=== PATIENT | female | born 1960 | race Caucasian/White ===

== ENCOUNTER 2017-05-20 18:08 | Emergency (ER) | payer MEDICAID ==
--- NOTE | 2017-05-20 18:24 | Emergency Department Record ---
History of Present Illness - General Chief complaint: Head Injury Stated complaint: BUMP ON HEAD FROM POSS FALL Time Seen by Provider: 05/20/17 18:15 Source: Patient Mode of Arrival: Ambulatory Limitations: No limitations - History of Present Illness Initial comments: 56 yo woke up this morning with a forehead contusion. She sleep walk on a very regular and frequent basis. She woke up this morning in the bathroom with the small contusion. She is on Plavix. She has a headache that is frontal. Complaint: Head injury (Possible) -: Days(s) (1) Mechanism of Injury: Unsure (Sleep walking) Location: Frontal Loss of Consciousness: No Previous Trauma to this Area: Yes Place: Home Radiation: None Severity: Mild Quality: Aching Consistency: Constant Provoking factors: Other (She sleep walks on a very regular basis. She has fallen and injury herself in the past with sleep walking) - Related Data Home Medications Medication Instructions Recorded Confirmed Last Taken Aspirin 325 mg PO DAILY 05/20/17 05/20/17 05/20/17 Atorvastatin Calcium 40 mg PO QHS 05/20/17 05/20/17 05/20/17 Clopidogrel Bisulfate [Plavix] 75 mg PO DAILY 05/20/17 05/20/17 05/20/17 Furosemide [Lasix] 20 mg PO DAILY 05/20/17 05/20/17 05/20/17 Lisinopril 10 mg PO DAILY 05/20/17 05/20/17 05/20/17 Allergies/Adverse reactions: Allergies Allergy/AdvReac Type Severity Reaction Status Date / Time NSAIDS (Non-Steroidal AdvReac VOMITING Verified 05/20/17 18:23 Anti-Inflamma Review of Systems Constitutional: Denies: Chills, Fever, Malaise, Weakness Eyes: Reports: Vision change (vague blurry at times). Denies: Eye discharge, Eye pain, Photophobia ENT: Denies: Congestion, Epistaxis, Throat pain Respiratory: Denies: Cough, Dyspnea, Hemoptysis, Stridor, Wheezes Cardiovascular: Denies: Chest pain, Palpitations, Syncope Endocrine: Denies: Fatigue Gastrointestinal: Denies: Abdominal pain, Diarrhea, Nausea, Vomiting Genitourinary: Denies: Dyspareunia, Dysuria, Urgency Musculoskeletal: Denies: Arthralgia, Back pain, Joint swelling, Myalgia Skin: Reports: As per HPI, Bruising, Other (forehead contusion) Neurological: Reports: Headache. Denies: Abnormal gait, Confusion, Numbness, Tingling, Tremors, Vertigo, Weakness Psychiatric: Denies: Anxiety Hematological/Lymphatic: Denies: Blood Clots, Easy bleeding, Easy bruising, Swollen glands Physical Exam - General General Appearance: Alert, Oriented x3, Cooperative, No acute distress - Head Head exam: Normocephalic. negative: Atraumatic, Normal inspection Head exam detail: Contusion Image of Face/Head: 1 - contusion, mild, mildly tender, no blisters - Eye Eye exam: Normal appearance, PERRL, EOMI. negative: Periorbital swelling - ENT ENT exam: Normal exam Ear exam: Normal external inspection Nasal Exam: Normal inspection Mouth exam: Normal external inspection - Neck Neck exam: Normal inspection, Full ROM. negative: Tenderness - Respiratory Respiratory exam: Normal lung sounds bilaterally. negative: Respiratory distress - Cardiovascular Cardiovascular Exam: Regular rate, Normal rhythm, Normal heart sounds - Rectal Rectal exam: Deferred - exam: Deferred - Extremities Extremities exam: Normal inspection, Full ROM, Normal capillary refill. negative: Tenderness - Back Back exam: Reports: Normal inspection, Full ROM. Denies: Muscle spasm, Rash noted, Tenderness - Neurological Neurological exam: Alert, Normal gait, Oriented X3 - Psychiatric Psychiatric exam: Normal affect, Normal mood. negative: Agitated, Anxious - Skin Skin exam: Dry, Intact, Normal color, Warm Course - Reevaluation(s) Reevaluation #1: The head CT scan is negative 05/20/17 19:14 Disposition Disposition: Discharge Clinical Impression: Forehead contusion Qualifiers: Encounter type: initial encounter Qualified Code(s): S00.83XA - Contusion of other part of head, initial encounter Disposition: Home, Self-Care Condition: (1) Good Instructions: Concussion (ED) Additional Instructions: Return if you have headaches, dizzy, nausea Call your doctor for close follow up this week Forms: Patient Portal Access Time of Disposition: 19:15 Quality - Quality Measures Quality Measures: N/A - Blood Pressure Screening Does Patient Have Any of the Following: No Blood Pressure Classification: Pre-Hypertensive BP Reading Systolic Measurement: 129 Diastolic Measurement: 66 Screening for High Blood Pressure: < Pre-Hypertensive BP, F/U Documented > [ G8950] Pre-Hypertensive Follow-up Interventions: Referral to alternative/primary care provider.
--- NOTE | 2017-05-21 21:22 | CT SCAN REPORT ---
EXAM: CT SCAN HEAD WO CONTRAST HISTORY: FALL. TECHNIQUE: CT brain without contrast. COMPARISON: None. FINDINGS: The globes are intact. The paranasal sinuses and mastoid air cells are unremarkable. No displaced or depressed skull fracture. There is no intra or extraaxial hemorrhage. CT is limited for evaluation of acute infarct. There is no CT evidence for large or territorial acute infarct. No mass or midline shift. Scattered hypodensities in the periventricular and subcortical white matter, which may relate to sequela of small vessel ischemic change. IMPRESSION: NO CT EVIDENCE FOR ACUTE INTRACRANIAL ABNORMALITY. PROBABLE MINOR SMALL VESSEL ISCHEMIC CHANGE. JOB NUMBER: [id number] [facility]
== END 2017-05-20 19:32 | disposition home or self-care (01) ==
LOC: ER 18:08
DX: S00.83XA Contusion of other part of head, initial encounter (principal); R51 Headache; X58.XXXA Exposure to other specified factors, initial encounter; Y92.002 Bathroom of unspecified non-institutional (private) residence as the place of occurrence of the external cause
CPT/HCPCS: 70450; 99283

== ENCOUNTER 2018-12-22 17:47 | Emergency (ER) | payer MEDICAID ==
[2018-12-22] MEDS ORDERED: NITROGLYCERIN 0.4MG SL TABLET #25 BTL SL PRN (18:09)
--- NOTE | 2018-12-22 18:17 | Emergency Department Record ---
History of Present Illness - General Chief Complaint: Chest Pain Stated Complaint: CHEST PAIN Time Seen by Provider: 12/22/18 18:04 Source: Patient Mode of Arrival: EMS Limitations: No limitations - History of Present Illness Initial Comments: pt has been having cp intermittently for 2 days. she states it feels like a pinch and it lasts a few minutes. she thinks it feels like her previous heart attack pain. she has no radiation, no sweating. she had a 2 vessel cabg 3 yrs ago. Onset/Timin -: Hour(s) Onset: During rest Pain Location: Substernal Pain Radiation: None Severity: Mild Severity scale (1-10): 2 Quality: Aching Consistency: Constant Improves With: Medication-other, Nitroglycerin Worsens With: Nothing Treatments Prior to Arrival: Aspirin, Nitroglycerin - Related Data Home Medications Medication Instructions Recorded Confirmed Last Taken Cholecalciferol (Vitamin D3) 50,000 unit PO WEEKLY 12/22/18 12/22/18 Unknown [Vitamin D] Hydrocodone/Acetaminophen [[place] 1 each PO BID 12/22/18 12/22/18 12/22/18 7.5-325 Tablet] Nitroglycerin 0.4MG [Nitrostat 1 tab SL ASDIR 12/22/18 12/22/18 12/22/18 0.4MG] Omeprazole 40 mg PO DAILY 12/22/18 12/22/18 12/22/18 Rosuvastatin Calcium 5 mg PO DAILY 12/22/18 12/22/18 Unknown Allergies Allergy/AdvReac Type Severity Reaction Status Date / Time NSAIDS (Non-Steroidal AdvReac VOMITING Verified 12/22/18 17:49 Anti-Inflamma Travel Screening - Travel/Exposure Within Last 30 Days Have you traveled within the last 30 days?: No Review of Systems Reviewed: No additional complaints except as noted below Constitutional: Reports: As per HPI. Denies: Chills, Fever, Malaise, Night sweats, Weakness, Weight change Eyes: Reports: As per HPI. Denies: Eye discharge, Eye pain, Photophobia, Vision change ENT: Reports: As per HPI. Denies: Congestion, Dental pain, Ear pain, Epistaxis , Hearing loss, Throat pain Respiratory: Reports: As per HPI. Denies: Cough, Dyspnea, Hemoptysis, Stridor, Wheezes Cardiovascular: Reports: As per HPI, Chest pain. Denies: Arrhythmia, Dyspnea on exertion, Edema, Murmurs, Orthopnea, Palpitations, Paroxysmal nocturnal dyspnea, Rheumatic Fever, Syncope Endocrine: Reports: As per HPI. Denies: Fatigue, Heat or cold intolerance, Polydipsia, Polyuria Gastrointestinal: Reports: As per HPI. Denies: Abdominal pain, Constipation, Diarrhea, Hematemesis, Hematochezia, Melena, Nausea, Vomiting Genitourinary: Reports: As per HPI. Denies: Abnormal menses, Discharge, Dyspareunia, Dysuria, Frequency, Hematuria, Incontinence, Retention, Urgency Musculoskeletal: Reports: As per HPI. Denies: Arthralgia, Back pain, Gout, Joint swelling, Myalgia, Neck pain Skin: Reports: As per HPI. Denies: Bruising, Change in color, Change in hair/ nails, Lesions, Pruritus, Rash Neurological: Reports: As per HPI. Denies: Abnormal gait, Confusion, Headache, Numbness, Paresthesias, Seizure, Tingling, Tremors, Vertigo, Weakness Psychiatric: Reports: As per HPI. Denies: Anxiety, Auditory hallucinations, Depression, Homicidal thoughts, Suicidal thoughts, Visual hallucinations Hematological/Lymphatic: Reports: As per HPI. Denies: Anemia, Blood Clots, Easy bleeding, Easy bruising, Swollen glands Past Medical History - SOCIAL HISTORY Smoking Status: Former smoker Alcohol Use: None Drug Use: None - RESPIRATORY Hx Respiratory Disorders: Yes Hx COPD: Yes - CARDIOVASCULAR Hx Cardio Disorders: Yes Hx Heart Attack: Yes Hx Hypertension: Yes Comment:: high cholesterol - NEURO Hx Neuro Disorders: No - GI Hx GI Disorders: Yes Hx Reflux: Yes - Hx Genitourinary Disorders: No - ENDOCRINE Hx Endocrine Disorders: No - MUSCULOSKELETAL Hx Musculoskeletal Disorders: Yes Hx Arthritis: Yes - PSYCH Hx Psych Problems: No - HEMATOLOGY/ONCOLOGY Hx Hematology/Oncology Disorders: No Family Medical History Any Significant Family History?: Yes Hx Cancer: Mother Physical Exam - General General Appearance: Alert, Oriented x3, Cooperative, Mild distress - Head Head exam: Normal inspection - Eye Eye exam: Normal appearance, PERRL, EOMI Pupils: Normal accommodation - ENT ENT exam: Normal exam, Mucous membranes moist, Normal external ear exam, Normal orophraynx Ear exam: Normal external inspection. negative: External canal tenderness Nasal Exam: Normal inspection. negative: Discharge, Sinus tenderness Mouth exam: Normal external inspection, Tongue normal Teeth exam: Normal inspection. negative: Dental caries Throat exam: Normal inspection. negative: Tonsillar erythema, Tonsillar exudate - Neck Neck exam: Normal inspection, Full ROM. negative: Tenderness - Respiratory Respiratory exam: Normal lung sounds bilaterally. negative: Respiratory distress - Cardiovascular Cardiovascular Exam: Regular rate, Normal rhythm, Normal heart sounds - GI/Abdominal GI/Abdominal exam: Soft, Normal bowel sounds. negative: Tenderness - Rectal Rectal exam: Deferred - exam: Deferred - Extremities Extremities exam: Normal inspection, Full ROM, Normal capillary refill. negative: Tenderness - Back Back exam: Reports: Normal inspection, Full ROM. Denies: Muscle spasm, Rash noted, Tenderness - Neurological Neurological exam: Alert, CN II-XII intact, Normal gait, Oriented X3 - Psychiatric Psychiatric exam: Normal affect, Normal mood - Skin Skin exam: Dry, Intact, Normal color, Warm Course Vital Signs 12/22/18 17:49 Temperature 97.9 F Pulse Rate 81 Respiratory 18 Rate Blood Pressure 117/89 Pulse Ox 97 Medical Decision Making - Lab Data Result diagrams: 12/22/18 17:38 12/22/18 17:38 Disposition Disposition: Transfer Clinical Impression: Unstable angina CAD (coronary artery disease) Qualifiers: Coronary Disease-Associated Artery/Lesion type: unspecified vessel or lesion type [place] vs. 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
[2018-12-22 18:24] LABS: BASO % 0.3 % (0-6); GRAN % 53.2 % (47-80); HEMATOCRIT 38.2 % (35.0-47.0); HEMOGLOBIN 12.7 gm/dl (11.6-16.0); LYMPH % 35.2 % (16-45); MEAN CORPUSCULAR HEMOGLOBIN 27.9 pg (27-33); MEAN CORPUSCULAR HGB CONC 33.2 g/dl (32-36); MEAN PLATELET VOLUME 9.6 fl (7.4-10.4); MONO % 9.3 % (0-9); PLATELET COUNT 273 K/uL (130-400); RED BLOOD COUNT 4.55 M/uL (3.80-5.40); RED CELL DISTRIBUTION WIDTH 13.6 % (11.5-14.5); WHITE BLOOD COUNT W/O DIFF 6.1 K/uL (4.2-12.2)
[2018-12-22] MEDS ORDERED: NITROGLYCERIN/D5W 50 MG/250 ML ML IV SCH (18:45)
[2018-12-22 18:47] LABS: BLOOD UREA NITROGEN 18 mg/dL (6-20); CREATININE 0.7 mg/dL (0.5-0.9); EST GLOMERULAR FILTRATION RATE > 60 mL/min
[2018-12-22 18:48] LABS: TOTAL PROTEIN 7.4 g/dL (6.6-8.7)
[2018-12-22 18:50] LABS: GLUCOSE,RANDOM 94 mg/dL (74-109)
[2018-12-22 18:53] LABS: ALB/GLOB RATIO 1.5 (1.1-1.8); ALBUMIN 4.4 g/dL (4.0-5.0); ALKALINE PHOSPHATASE 225 U/L (35-104); ALT/SGPT 108 U/L (<33); AST/SGOT 42 U/L (10.0-35.0); CREATINE PHOSPHOKINASE 66 U/L (26-192)
[2018-12-22 18:55] LABS: CKMB 1.6 ng/mL (<3.77)
[2018-12-22 19:08] LABS: INFLUENZA A NEGATIVE (NEGATIVE); INFLUENZA B NEGATIVE (NEGATIVE)
[2018-12-22] MEDS ORDERED: KETOROLAC 30 MG/ML VIAL IVP ONE (20:43)
--- NOTE | 2018-12-24 18:15 | RADIOLOGY REPORT ---
EXAM: CHEST 1 VIEW HISTORY: CHEST PAIN WITH SHORTNESS OF BREATH. TECHNIQUE: AP portable chest. COMPARISON: None. FINDINGS: The patient is post-op sternotomy. Heart size normal. Thoracic dextroscoliosis. No definite acute infiltrate seen. No pleural effusion or pneumothorax evident. IMPRESSION: 1. POST-OP STERNOTOMY. 2. THORACIC DEXTROSCOLIOSIS. 3. NO DEFINITE ACUTE INFILTRATE SEEN. [facility]BER: [id number] [facility]
== END 2018-12-22 21:06 | disposition short-term general hospital (02) ==
LOC: ER 17:47
DX: I25.110 Atherosclerotic heart disease of native coronary artery with unstable angina pectoris (principal); R06.02 Shortness of breath; J44.9 Chronic obstructive pulmonary disease, unspecified; R51 Headache; I25.2 Old myocardial infarction; I10 Essential (primary) hypertension; Z87.891 Personal history of nicotine dependence
CPT/HCPCS: 71045; 80053; 82550; 82553; 84484; 85025; 85379; 87400; 93005; 93010; 96365; 96366; 96375; 99285; J1885